=== PATIENT | male | born 1965 | race Caucasian/White ===

== ENCOUNTER 2017-01-27 15:36 | Emergency (ER) | payer OTHER ==
[~2017-01-27] VITALS: Ht 182.9 cm; Wt 75.7 kg
[2017-01-27 15:50] VITALS: BP 115/68
== END 2017-01-27 17:36 | disposition home or self-care (01) ==
LOC: ED 15:36
DX: S22.32XA Fracture of one rib, left side, initial encounter for closed fracture (principal); V29.9XXA Motorcycle rider (driver) (passenger) injured in unspecified traffic accident, initial encounter; Y93.89 Activity, other specified; Y99.8 Other external cause status; Y92.89 Other specified places as the place of occurrence of the external cause

== ENCOUNTER 2020-06-25 15:47 | Emergency (ER) | payer OTHER ==
[~2020-06-25] VITALS: Ht 182.9 cm; Wt 81.6 kg
[2020-06-25 16:03] VITALS: Ht 182.9 cm; Wt 81.6 kg
[2020-06-25 18:19] VITALS: BP 125/60
== END 2020-06-25 18:19 | disposition home or self-care (01) ==
LOC: ED 15:47
DX: S93.401A Sprain of unspecified ligament of right ankle, initial encounter (principal); S93.402A Sprain of unspecified ligament of left ankle, initial encounter; S90.32XA Contusion of left foot, initial encounter; V86.56XA Driver of dirt bike or motor/cross bike injured in nontraffic accident, initial encounter; Y93.I9 Activity, other involving external motion; Y92.488 Other paved roadways as the place of occurrence of the external cause; Y99.8 Other external cause status